=== PATIENT | male | born 1965 | race Caucasian/White ===

== ENCOUNTER 2018-12-19 15:00 | Outpatient (RCR) | payer BC, SELFPAY ==
--- NOTE | 2018-12-11 14:50 | HP.PTEVAL_ITS ---
Patient's Visit Information CLAUDE FORBES is a 53 year old M referred to Physical Therapy by YOVANY Diego with a diagnosis of L shoulder impingement. Date of Evaluation: 12/11/18 Physical Therapist: Ricardo Talley PT, ATC - Visit Plan Frequency: 2x /Week Duration: 2 Weeks Plan: Instruct Pt on HEP of rotator cuff and scap stab ex's - Subjective Findings: Pt reports he has had L shoulder pain for 1-2 months. Pt reports he is R hand dominant. Pt reports his pain had an insidious onset in nature. Pt reports he has sleep difficulty at night secondary to pain. Pt notes no tingling or numbness at this time. Pt had a cortizine injection today in his L shoulder. Pt reports no relief of pain yet at this time. 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 Pt reports he has weakness in his L arm and it is mosty just a dull ache most of the time. Pt reports he has had xrays taken which revealed no significnat findings. 4/10 pain at rest, 8/10 at worst. - Pain L shoulder Pain Intensity (Out of 10): 4 Pain Intensity Range: 8 - Objective Neuro: B UE sensation is WNL. B bicepital reflex= 1/3. Palpation: Minor pain on anterior L shoulder. No pbvious deformity at this time. ROM: R shoulder flex= 150, abd= 140, ER= 50, IR WNL;L shoulder flex= 150, abd= 140, ER= 50, IR WNL. MMT: L shoulder ER and flex= 4-/5 and are painful. All other B UE measurements 5/5 throughout. Special tests: No pos tests this date - Goals Goal 1:: I with HEP Goal Time Frame: 2 Weeks - Rehabilitation Potential Physical Therapy Diagnosis: L shoulder pain and weakness secondary to L shoulder impingement Rehabilitation Potential: Good - Anticipated Interventions Thank you for the opportunity to evaluate your patient. For Medicare and Medicare HMO plans, please review the plan of care and approve it. It will need to be FAXED BACK to us at [phone] for Medicare purposes. For Medicare only, by signing this I certify the plan of care. Please let me know if there are questions or concerns regarding this plan of care. Physician Signature: Date:
--- NOTE | 2018-12-19 15:38 | HP.PTDCSUM ---
HP - PT D/C Summary It has been my pleasure to treat CLAUDE FORBES under orders from YOVANY Diego, for the diagnosis of L shoulder impingement for a total of 4 visit(s). Discharge Date: Please see the following information for a summary of their discharge status. - Subjective Subjective: No pain this date - Pain L shoulder Pain Intensity (Out of 10): 0 - Overall Improvement % Improvement: 95 - Objective Objective/Function: L shoulder ROM: flex and abd= 170 degrees. MMT: 5/5 throughout. Pain is 0/10. Pt is I with HEP. Rx goals achieved - Goals Goal 1:: I with HEP - Plan Plan: Discharge - D/C Information If there are questions or concerns regarding this patient's physical therapy, please feel free to call me at [phone]. Thank you for the referral of this patient. Sincerely, Ricardo Talley, PT, ATC
== END 2018-12-19 19:00 | disposition home or self-care (01) ==
LOC: PT 15:00
PROVIDERS: Family Provider Family Medicine; PCP Family Medicine; Referring Provider Physician Assistant Surgical; Visit Provider Physician Assistant Surgical
DX: M75.42 Impingement syndrome of left shoulder (principal); M25.512 Pain in left shoulder
CPT/HCPCS: 97110; 97161; 97530

== ENCOUNTER 2019-01-16 19:11 | Inpatient (IN) | payer BC, SELFPAY ==
[2019-01-16] VITALS (9 sets, daily range): BP systolic 121–174; BP diastolic 65–95; PULSE 67–101; RESP 16–20; TEMP 36.7–38.1; O2SAT 94–99; BMI 44.5; BMI 44.0
--- NOTE | 2019-01-16 19:37 | ED.VISSUMM ---
- ER Visit Summary Date of Service: 01/16/19 Chief Complaint: Cough History of Present Illness: The patient is a 53 M presenting with cough and fever. Patient states he had a cough and fever for the past 3 days. Temperature up to 103.6. Patient went to urgent care. They gave him a breathing treatment, ibuprofen. He states they did a chest x-ray which was unremarkable per patient. They sent him to the ED to rule out PE. Patient had a recent 9-hour car trip. He states he did get out frequently. His mom has a history of DVT. No other PE/DVT risk factors. He denies chest pain. Denies other complaints. Physical Examination: Vitals are stable. Temperature 100.6. Alert no acute distress. HEENT exam is unremarkable. Neck is supple. Lungs are clear and equal bilaterally. Heart is regular and tachycardic Abdomen is soft nontender nondistended. Extremities are unremarkable. Skin is warm and diaphoretic No focal neurologic deficit. Remainder of exam is unremarkable. Emergency Department Course and Treatment: Patient was given IV fluids, Tylenol. CBC shows white count 11.5. Chemistries unremarkable. Troponin is negative. D-dimer 0.65. Lactic acid normal. Due to elevated d-dimer CTA chest was obtained and shows no evidence of pulmonary embolism. Large right lower lobe consolidation. Additional scattered bilateral groundglass opacities/nodules. Likely infectious/inflammatory process, although follow-up is recommended to exclude underlying lesion. Mild right axillary lymph node prominence. Blood cultures were sent. Patient was given Levaquin IV. Discussed with the hospitalist for admission. Disposition: Admission Impression: Community acquired pneumonia This note was generated with [employer] dictation software. It may contain incorrect words, spelling, and punctuation that were not noted in review of the chart prior to signing ED Disposition - Plan for ED Patient: Referrals: Flor Ribeiro MD [STAFF PHYSICIAN] -
[2019-01-16] MEDS: Acetaminophen 500 MG Tablet 1000 MG PO (20:11)
[2019-01-16 20:16] LABS: D-Dimer Quantitative (DVT/PE) 0.65 FEU/ug/m (0.27-0.49)
[2019-01-16] MEDS: 0.9% Normal Saline 1,000 ML 999 ML IV (20:17)
--- NOTE | 2019-01-16 20:20 | ED.RN ---
DR LOPEZ NOTIFIED OF DDIMER RESULTS
--- NOTE | 2019-01-16 20:22 | CT_ITS ---
STUDY: CTA CHEST REASON FOR EXAM: Male, 53 years old. Elevated d-dimer RADIATION DOSAGE (If Supplied By Facility): CTDIvol = ( 15.04 ) mGy, DLP = ( 517.59 ) mGycm TECHNIQUE: The examination was performed with the intravenous administration of 100ML IV Isovue 370. Post-processing of the angiographic images was performed, with multiplanar reformation and 3D reconstruction. Individualized dose optimization techniques were used for this CT. COMPARISON: None. FINDINGS: Normal enhancement of the main pulmonary artery and right and left pulmonary arteries. Normal enhancement of the bilateral peripheral pulmonary arteries. There is no demonstrated pulmonary embolism. Normal thoracic aorta and visualized great vessels. There is no demonstrated aortic dissection. Normal heart and pericardium. Normal mediastinum. Normal hilar regions. Mild right axillary lymph node prominence is present. Normal visualized trachea and bronchi. The lungs are well expanded. There is a large right lower lobe consolidation. There are additional scattered bilateral groundglass opacities/nodules. Normal pleura. Normal chest wall structures. Normal osseous structures. Normal visualized upper abdomen. CT/CTA Chest W/WO Contrast IMPRESSION: No evidence of pulmonary embolism. Large right lower lobe consolidation. Additional scattered bilateral groundglass opacities/nodules. Likely infectious/inflammatory process, although follow-up is recommended to exclude underlying lesion. Mild right axillary lymph node prominence. Electronically Signed: Javier Ansari, at 21:40 EDT Tel , Service support ,
[2019-01-16 20:54] LABS: Anion Gap 5 (5-15); BUN 18 mg/dL (7-18); BUN/Creat Ratio 17.1 RATIO (10-20); Calcium,Total 8.7 mg/dL (8.5-10.1); Chloride 105 mmol/L (98-107); Creatinine, Serum 1.05 mg/dL (0.70-1.30); EST Glomerular Filtration Rate 79 mL/min (>60); Est Glom Filt Rate - Afr Amer 95 mL/min (>60); Estimated Creatinine Clearance 85.94 ml/min; Glucose 103 mg/dL (74-106); Potassium 3.9 mmol/L (3.5-5.1); Sodium Level 137 mmol/L (136-145)
[2019-01-16 22:08] LABS: Absolute Lymphocyte Count 1.39 X10^3/uL (0.83-4.51); Absolute Neutrophil Count 8.7 X10^3/uL (2.0-7.7); Basophil# 0.03 X10^3/uL; Basophil% 0.3 % (0-1); Eosinophils% 0.9 % (0-5); Hematocrit 40.3 % (40-54); Hemoglobin 13.6 g/dL (13.0-16.5); Lymphocyte # 1.39 X10^3/ul (4.0); Lymphocyte % 12.1 % (19-41); Mean Corp Hgb Conc 33.7 g/dL (32-36); Mean Corpuscular Hgb 30.6 pg (27.0-32.0); Mean Corpuscular Volume 90.6 fL (80-94); Monocyte# 1.16 X10^3/uL; Monocyte% 10.1 % (0-10); NRBC Flagged by Analyzer 0 % (0-5); Neutrophil # 8.66 X10^3/uL (2.7-7.7); Neutrophil % 75.6 % (47-70); Platelet Count 245 K/mm3 (150-450); RBC Distribution Width CV 12.5 % (11.6-14.6); RBC Distribution Width SD 41.4 fl (35.1-43.9); Red Blood Count 4.45 M/mm3 (4.6-6.2); White Blood Count 11.5 K/mm3 (4.4-11.0)
[2019-01-16 22:40] LABS: Lactic Acid 0.9 mmol/L (0.4-2.0)
--- NOTE | 2019-01-16 22:59 | HP.PCM_ITS ---
History of Present Illness Date of Admission: 01/16/19 Chief Complaint: cough The patient is a 53 year old M with no significant past medical history. Was admitted through the ED on 02/02/2019 with complaint of a cough. Cough had been going on for a few days. Denies any associated fever chills, chest pain or palpitations or dizziness. Cough was nonproductive. Patient is going to the urgent care today where his temperature was checked and was around 103 Fahrenheit. They did a chest x-ray according to patient which was unremarkable and he was sent to the ED to rule out a PE. D-dimer was 0.65. Chest CT done in the ED showed no evidence of PE but showed a right large lower lobe consolidation with additional scattered bilateral groundglass opacities. Patient was therefore admitted to be managed for bilateral pneumonia. He Was started on IV Levaquin. [] Past Medical History Allergies Sulfa (Sulfonamide Antibiotics) Allergy (Verified 01/16/19 19:12) Rash Surgical History: no surgical history Psychiatric History: No pertinent psych hx Lives: Spouse/ Significant Other Smoking Status: Never smoker Alcohol: None Drugs: None - *Family History Maternal History Items: COPD, Diabetes Paternal History Items: COPD, Diabetes Review of Systems Constitutional: Reports: Fever. Denies: Chills, Malaise, Weakness, Weight Change Eyes: Denies: Blurred vision HEENT: Denies: Head Aches, Sinus Congestion, Sinus Drainage Cardiovascular: Denies: Chest Pain, Palpitations Respiratory: Reports: Cough. Denies: Pleuritic Pain, Shortness of Breath, Shortness of breath at rest, Shortness of breath upon exertion, Sputum production, Wheezing Gastrointestinal: Denies: Abdominal Pain, Nausea, Vomiting Genitourinary: Denies: Dysuria Musculoskeletal: Denies: Joint Pain, Joint Tenderness Skin: Denies: Rash, Wounds Neurological: Denies: Numbness, Tingling, Focal weakness Psychiatric: Denies: Anxiety, Depression, Homicidal Ideations, Suicidal Ideations Hematologic/ Lymphatic: Denies: Easy Bruising, Easy Bleeding VTE Information - Inpt Only VTE Present on Admission: No VTE Pharm Prophylaxis ordered?: Yes - Physical Exam General: Alert, Oriented x3, Cooperative, No apparent distress HEENT: Atraumatic, PERRLA, EOMI, Normocephalic Oral: Moist Mucosa Neck: Supple, No JVD, Negative Carotid Bruits Lungs: Clear to auscultation, Normal air movement, No rhonchi, No wheeze, No rales, Diminished Cardiovascular: Regular rate, Regular Rhythm, Normal S1, Normal S2, No murmurs Abdomen: Bowel Sounds Present, Soft, Non Tender, Non-Distended, No Hepato- splenomegaly Extremities: No clubbing, No cyanosis, No edema, Capillary Refill Less than 3 Seconds Skin: No rashes, No breakdown Musculoskeletal: No Tenderness to Palpation of Joints or Extremities Lymphatic: No Cervical, Supraclavicular, or Inguinal Adenopathy Neurological: Cranial nerves II-XII grossly intact, Neuro grossly intact, Motor Exam 5/5 strength throughout Psych/Mental Status: Normal Affect, Appropriate, Alert and oriented to time, place, person, mood and affect Vital Signs Temp Pulse Resp BP Pulse Ox 98.1 F 68 16 164/82 H 95 01/16/19 22:00 01/16/19 22:00 01/16/19 22:00 01/16/19 22:00 01/16/19 22:00 Oxygen Delivery Method Room Air Weight: 310 lb 3.046 oz Body Mass Index (BMI) 44.5 Laboratory Tests Past 24 Hrs 01/16/19 01/16/19 01/16/19 19:55 19:55 19:55 WBC 11.5 H RBC 4.45 L Hgb 13.6 Hct 40.3 MCV 90.6 MCH 30.6 MCHC 33.7 RDW Std Deviation 41.4 RDW Coeff of Jorge 12.5 Plt Count 245 MPV 10.0 Immature Gran % (Auto) 1.000 H Neut % (Auto) 75.6 H Lymph % (Auto) 12.1 L [place] % (Auto) 10.1 H Eos % (Auto) 0.9 Baso % (Auto) 0.3 Absolute Neuts (auto) 8.7 H Absolute Lymphs (auto) 1.39 Nucleated RBC % 0 D-Dimer Quant (PE/DVT) 0.65 H* Sodium 137 Potassium 3.9 Chloride 105 Carbon Dioxide 27.0 Anion Gap 5 BUN 18 Creatinine 1.05 Estim Creat Clear Calc 85.94 Est GFR (MDRD) Af Amer 95 Est GFR (MDRD) Non-Af 79 BUN/Creatinine Ratio 17.1 Glucose 103 Lactic Acid Calcium 8.7 Troponin I 01/16/19 01/16/19 19:55 22:00 WBC RBC Hgb Hct MCV MCH MCHC RDW Std Deviation RDW Coeff of Jorge Plt Count MPV Immature Gran % (Auto) Neut % (Auto) Lymph % (Auto) [place] % (Auto) Eos % (Auto) Baso % (Auto) Absolute Neuts (auto) Absolute Lymphs (auto) Nucleated RBC % D-Dimer Quant (PE/DVT) Sodium Potassium Chloride Carbon Dioxide Anion Gap BUN Creatinine Estim Creat Clear Calc Est GFR (MDRD) Af Amer Est GFR (MDRD) Non-Af BUN/Creatinine Ratio Glucose Lactic Acid 0.9 Calcium Troponin I < 0.015 Diagnostic Data Chest CTA 01/16/19 20:22 IMPRESSION: No evidence of pulmonary embolism. Large right lower lobe consolidation. Additional scattered bilateral groundglass opacities/nodules. Likely infectious/inflammatory process, although follow-up is recommended to exclude underlying lesion. Mild right axillary lymph node prominence. Electronically Signed: Javier Ansari, at 21:40 EDT Tel , Service support , Assessment/Plan 53-year-old male admitted with complaint of a cough 1. Community acquired pneumonia * admit to [facility] surg * CTA was negative for PE. but showed large right lower lobe consolidation nad additional bilateral ground glass opacities/nodules * BBC mildly elevated at 11.5. * Check urine for strep and Legionella antigens. * Check blood cultures * Added on IV Levaquin. Will continue. * 2. SUper morbid Obesity. BMI is more than 40. Complicates acute care, expected recovery and prognosis. Code Visit OBSV E&M: [id number] Initial observation care L3
[2019-01-16] MEDS: levoFLOXacin IV 750 MG/150 ML BAG 100 MG IV (23:09)
[2019-01-17] VITALS (13 sets, daily range): BP systolic 125–154; BP diastolic 63–86; PULSE 58–100; RESP 16–18; TEMP 36.6–37.5; O2SAT 94–98
[2019-01-17 05:57] LABS: Absolute Lymphocyte Count 1.25 X10^3/uL (0.83-4.51); Absolute Neutrophil Count 5.7 X10^3/uL (2.0-7.7); Basophil# 0.03 X10^3/uL; Basophil% 0.4 % (0-1); Eosinophil# 0.17 X10^3/uL; Hematocrit 38.2 % (40-54); Hemoglobin 12.7 g/dL (13.0-16.5); Lymphocyte # 1.25 X10^3/ul (4.0); Mean Corp Hgb Conc 33.2 g/dL (32-36); Mean Corpuscular Hgb 29.8 pg (27.0-32.0); Mean Corpuscular Volume 89.7 fL (80-94); Mean Platelet Vol. 8.8 fl (6.2-12.0); Monocyte# 1.05 X10^3/uL; Monocyte% 12.6 % (0-10); NRBC Flagged by Analyzer 0 % (0-5); Neutrophil # 5.69 X10^3/uL (2.7-7.7); Neutrophil % 68.1 % (47-70); Platelet Count 185 K/mm3 (150-450); RBC Distribution Width CV 12.7 % (11.6-14.6); RBC Distribution Width SD 41.5 fl (35.1-43.9); Red Blood Count 4.26 M/mm3 (4.6-6.2); White Blood Count 8.4 K/mm3 (4.4-11.0)
[2019-01-17 06:11] LABS: Anion Gap 8 (5-15); BUN 15 mg/dL (7-18); BUN/Creat Ratio 19.7 RATIO (10-20); Calcium,Total 8.2 mg/dL (8.5-10.1); Chloride 108 mmol/L (98-107); Creatinine, Serum 0.76 mg/dL (0.70-1.30); EST Glomerular Filtration Rate 114 mL/min (>60); Est Glom Filt Rate - Afr Amer 138 mL/min (>60); Estimated Creatinine Clearance 118.73 ml/min; Glucose 97 mg/dL (74-106); Potassium 3.7 mmol/L (3.5-5.1); Sodium Level 141 mmol/L (136-145)
--- NOTE | 2019-01-17 10:30 | PCM.DC ---
You will use the following diet at home:: No restrictions Your food should be the consistency of: Regular Your liquids should be the consistency of: Regular/Thin Discharge Activity: - - Return to work Tuesday01/22/2019 Allergies/Adverse Reactions: Allergies Sulfa (Sulfonamide Antibiotics) Allergy (Verified 01/16/19 19:12) Rash Medications to take at Discharge Guaifenesin Dm [Robitussin Dm] 10 ml PO Q6H PRN PRN #1 udc 01/17/19 levoFLOXacin tablet [Levaquin tablet] 750 mg PO DAILY #6 tab 01/17/19 The following prescriptions were given: levoFLOXacin tablet [Levaquin tablet] 750 mg PO DAILY #6 tab Transmission Status: Pending to [facility] Guaifenesin Dm [Robitussin Dm] 10 ml PO Q6H PRN PRN #1 udc PRN Reason: Cough Primary Care Physician: Flor Ribeiro MD [STAFF PHYSICIAN] - Please follow up with your Primary Care Physician in: 1-2 weeks Test Results: Test results from this visit will be discussed in further detail at your follow-up appointment, if applicable. Proposed Discharge Date: 01/17/19
--- NOTE | 2019-01-17 11:16 | ECHOCS_ITS ---
Reason For Study: Arrhythmia Procedure This was a 2D Doppler, Color Flow transthoracic echocardiogram. The study was technically difficult. Exam performed portable in patient room. Left Ventricle Normal size and thickness. The estimated ejection fraction is 65 %. Normal diastology for age. No regional wall motion abnormalities noted. Right Ventricle Normal size and thickness. Normal systolic function. Atria Normal left atrium. Normal right atrium. Normal atrial septum. Mitral Valve The mitral valve is structurally normal. No prolapse or stenosis seen. Tricuspid Valve Normal tricuspid valve. Unable to estimate RV systolic pressure due to insufficient tricuspid regurgitant envelope. Aortic Valve Normal aortic valve. Trisinus/trileaflet aortic valve. Pulmonic Valve Normal pulmonic valve. Great Vessels Normal aortic root. Normal arch. Normal inferior vena cava. Inferior vena cava collapse with sniff. Pericardium/Pleural No pericardial effusion. Medication Diluted definity 2ml given slow IV push to enhance endocardial definition. MMode/2D Measurements & Calculations LVIDd: 4.7 cm IVSd: 1.1 cm Ao root diam: 3.4 cm LVIDs: 3.4 cm LVPWd: 1.6 cm FS: 27.2 % LAV(MOD-bp): 56.1 ml LA A4 area: 17.3 cm2 LA dimension(2D): 3.3 cm LAV(MOD-bp) Indexed: 22.4 ml/m2 LAV(MOD-sp2): 67.4 ml LAV(MOD-sp4): 42.1 ml RA A4 area: 13.9 cm2 Doppler Measurements & Calculations MV E max corey: 113.1 cm/sec Lat Peak E' Corey: 14.5 cm/sec Med Peak E' Corey: 11.6 cm/sec MV A max corey: 97.9 cm/sec E/E' lat: 7.8 E/E' med: 9.8 MV E/A: 1.2 Ao V2 max: 177.3 cm/sec LV V1 max: 131.2 cm/sec PA V2 max: 136.6 cm/sec Ao max P.6 mmHg LV V1 max P.9 mmHg Interpretation Summary The estimated ejection fraction is 65 %. Normal diastology for age. Unable to estimate RV systolic pressure due to insufficient tricuspid regurgitant envelope. The study was technically difficult. Contrast injection was performed. There is no comparison study available. Ordering Physician: Bartolome Molina Referring Physician: Liv Mariscal Performed By: Jeannette Mclaughlin RDCS
--- NOTE | 2019-01-17 11:17 | EKG12_ITS ---
Test Reason : AH Blood Pressure : / mmHG Vent. Rate : 080 BPM Atrial Rate : 080 BPM P-R Int : 144 ms QRS Dur : 112 ms QT Int : 394 ms P-R-T Axes : 047 008 022 degrees QTc Int : 454 ms Normal sinus rhythm Normal ECG When compared with ECG of 29-FEB-2012 16:43, No significant change was found Confirmed by ALEJANDRA VIDAL ([id number]), manager editorial MARSHALL MARSHALL ([id number]) on 01/18/2019 2:58:32 PM Referred By: Liv Mariscal Confirmed By:ALEJANDRA VIDAL
--- NOTE | 2019-01-17 11:22 | PHA.DC.MC ---
Pharmacy Service has performed discharge medication reconciliation and counseling for this patient. The patient's discharge medication list was reviewed for discrepancies and discrepancies were resolved. The patient was counseled on the following discharge medications and changes in medications for homegoing were reviewed. 1. LEVOFLOXACIN 750MT PO DAILY X6 DAYS The Reason for Use, instructions for use, and potential side effects were reviewed for all new medications. The patient's questions regarding all of their medications were answered. The patient was able to verbally demonstrate an understanding of their discharge medications. Home Medications Guaifenesin Dm [Robitussin Dm] 10 ml PO Q6H PRN PRN #1 udc 01/17/19 levoFLOXacin tablet [Levaquin tablet] 750 mg PO DAILY #6 tab 01/17/19
[2019-01-17 11:43] LABS: Magnesium 2.5 mg/dL (1.6-2.6); Thyroid Stim Hormone (TSH) 2.59 uIU/mL (0.358-3.74)
--- NOTE | 2019-01-17 12:14 | PCM.PROGNOTE ---
<Bartolome Molina - Last Filed: 01/17/19 12:14> Subjective: Fevers resolved. No chills overnight. Nonproductive cough. No CP. No SOB. Pt ambulated in the hallway with no issues. Prior to DC patient developed 12 beats of nonsustained asymptomatic vtach while lying in bed. He has no hx of heart disease, denies family hx heart disease. - Physical Exam General: Alert, Oriented x3, Cooperative HEENT: Atraumatic, PERRLA, EOMI, Normocephalic Neck: Supple, No JVD, Negative Carotid Bruits Lungs: Normal air movement, No rales Cardiovascular: Regular rate, No murmurs Abdomen: Bowel Sounds Present, Soft, Non Tender, Obese Extremities: No edema, Capillary Refill Less than 3 Seconds Skin: No rashes, No breakdown Musculoskeletal: No Tenderness to Palpation of Joints or Extremities Neurological: Cranial nerves II-XII grossly intact Psych/Mental Status: Normal Affect, Appropriate Vital Signs Temp Pulse Resp BP Pulse Ox 97.8 F 88 18 125/74 H 98 01/17/19 11:24 01/17/19 11:24 01/17/19 11:24 01/17/19 11:24 01/17/19 11:24 Oxygen Delivery Method Room Air Weight: 306 lb 14.135 oz Body Mass Index (BMI) 44.0 Intake and Output for Last 24 Hours 01/15/19 01/16/19 01/17/19 23:59 23:59 23:59 Intake Total 1099 / 1099 682.1 / 682.1 Balance 1099 / 1099 682.1 / 682.1 Microbiology Past 72 Hours 01/16/19 06:27 Legionella Antigen - Final Urine, Clean Catch Streptococcus pneumoniae Antigen (M - Final Laboratory Tests Past 24 Hrs 01/16/19 01/16/19 01/16/19 19:55 19:55 19:55 WBC 11.5 H RBC 4.45 L Hgb 13.6 Hct 40.3 MCV 90.6 MCH 30.6 MCHC 33.7 RDW Std Deviation 41.4 RDW Coeff of Jorge 12.5 Plt Count 245 MPV 10.0 Immature Gran % (Auto) 1.000 H Neut % (Auto) 75.6 H Lymph % (Auto) 12.1 L [place] % (Auto) 10.1 H Eos % (Auto) 0.9 Baso % (Auto) 0.3 Absolute Neuts (auto) 8.7 H Absolute Lymphs (auto) 1.39 Nucleated RBC % 0 D-Dimer Quant (PE/DVT) 0.65 H* Sodium 137 Potassium 3.9 Chloride 105 Carbon Dioxide 27.0 Anion Gap 5 BUN 18 Creatinine 1.05 Estim Creat Clear Calc 85.94 Est GFR (MDRD) Af Amer 95 Est GFR (MDRD) Non-Af 79 BUN/Creatinine Ratio 17.1 Glucose 103 Lactic Acid Calcium 8.7 Magnesium Troponin I [facility] 01/16/19 01/16/19 01/17/19 19:55 22:00 05:35 WBC 8.4 RBC 4.26 L Hgb 12.7 L Hct 38.2 L MCV 89.7 MCH 29.8 MCHC 33.2 RDW Std Deviation 41.5 RDW Coeff of Jorge 12.7 Plt Count 185 MPV 8.8 Immature Gran % (Auto) 1.900 H Neut % (Auto) 68.1 Lymph % (Auto) 15.0 L [place] % (Auto) 12.6 H Eos % (Auto) 2.0 Baso % (Auto) 0.4 Absolute Neuts (auto) 5.7 Absolute Lymphs (auto) 1.25 Nucleated RBC % 0 D-Dimer Quant (PE/DVT) Sodium Potassium Chloride Carbon Dioxide Anion Gap BUN Creatinine Estim Creat Clear Calc Est GFR (MDRD) Af Amer Est GFR (MDRD) Non-Af BUN/Creatinine Ratio Glucose Lactic Acid 0.9 Calcium Magnesium Troponin I < 0.015 TSH 01/17/19 01/17/19 05:35 05:35 WBC RBC Hgb Hct MCV MCH MCHC RDW Std Deviation RDW Coeff of Jorge Plt Count MPV Immature Gran % (Auto) Neut % (Auto) Lymph % (Auto) [place] % (Auto) Eos % (Auto) Baso % (Auto) Absolute Neuts (auto) Absolute Lymphs (auto) Nucleated RBC % D-Dimer Quant (PE/DVT) Sodium 141 Potassium 3.7 Chloride 108 H Carbon Dioxide 25.0 Anion Gap 8 BUN 15 Creatinine 0.76 Estim Creat Clear Calc 118.73 Est GFR (MDRD) Af Amer 138 Est GFR (MDRD) Non-Af 114 BUN/Creatinine Ratio 19.7 Glucose 97 Lactic Acid Calcium 8.2 L Magnesium 2.5 Troponin I TSH 2.59 Medical Necessity - Tobacco Use Smoking Status: Never smoker Assessment/Plan 1. RLL pna - CAP, suspect streptococcal - continue levaquin. No further fevers, leukocytosis resolved. Pna seen on CTA. No PE. LA negative. Urine antigens negative. Add PEP therapy. 2. Nonsustained Vtach - 12 beast. Asymptomatic. Check echo. Check EKG. QT on tele 370. Trop neg. TSH/Mag neg. No hx cardiac dz or arrythmias. 3. Obesity - dietary consult. DVT ppx: lovenox DC planning: pending workup of #2. This patient was seen by Bartolome Molina PA-C under the supervision of Dr. Givens. <Robinson Givens - Last Filed: 01/17/19 14:45> - Physical Exam Vital Signs Temp Pulse Resp BP Pulse Ox 97.8 F 81 18 125/74 H 98 01/17/19 11:24 01/17/19 12:02 01/17/19 11:24 01/17/19 11:24 01/17/19 11:24 Oxygen Delivery Method Room Air Weight: 139.2 kg Body Mass Index (BMI) 44.0 Intake and Output for Last 24 Hours 01/15/19 01/16/19 01/17/19 23:59 23:59 23:59 Intake Total 1099 / 1099 682.1 / 682.1 Balance 1099 / 1099 682.1 / 682.1 Microbiology Past 72 Hours 01/16/19 06:27 Legionella Antigen - Final Urine, Clean Catch Streptococcus pneumoniae Antigen (M - Final Laboratory Tests Past 24 Hrs 01/16/19 01/16/19 01/16/19 19:55 19:55 19:55 WBC 11.5 H RBC 4.45 L Hgb 13.6 Hct 40.3 MCV 90.6 MCH 30.6 MCHC 33.7 RDW Std Deviation 41.4 RDW Coeff of Jorge 12.5 Plt Count 245 MPV 10.0 Immature Gran % (Auto) 1.000 H Neut % (Auto) 75.6 H Lymph % (Auto) 12.1 L [place] % (Auto) 10.1 H Eos % (Auto) 0.9 Baso % (Auto) 0.3 Absolute Neuts (auto) 8.7 H Absolute Lymphs (auto) 1.39 Nucleated RBC % 0 D-Dimer Quant (PE/DVT) 0.65 H* Sodium 137 Potassium 3.9 Chloride 105 Carbon Dioxide 27.0 Anion Gap 5 BUN 18 Creatinine 1.05 Estim Creat Clear Calc 85.94 Est GFR (MDRD) Af Amer 95 Est GFR (MDRD) Non-Af 79 BUN/Creatinine Ratio 17.1 Glucose 103 Lactic Acid Calcium 8.7 Magnesium Troponin I TSH 01/16/19 01/16/19 01/17/19 19:55 22:00 05:35 WBC 8.4 RBC 4.26 L Hgb 12.7 L Hct 38.2 L MCV 89.7 MCH 29.8 MCHC 33.2 RDW Std Deviation 41.5 RDW Coeff of Jorge 12.7 Plt Count 185 MPV 8.8 Immature Gran % (Auto) 1.900 H Neut % (Auto) 68.1 Lymph % (Auto) 15.0 L [place] % (Auto) 12.6 H Eos % (Auto) 2.0 Baso % (Auto) 0.4 Absolute Neuts (auto) 5.7 Absolute Lymphs (auto) 1.25 Nucleated RBC % 0 D-Dimer Quant (PE/DVT) Sodium Potassium Chloride Carbon Dioxide Anion Gap BUN Creatinine Estim Creat Clear Calc Est GFR (MDRD) Af Amer Est GFR (MDRD) Non-Af BUN/Creatinine Ratio Glucose Lactic Acid 0.9 Calcium Magnesium Troponin I < 0.015 TSH 01/17/19 01/17/19 05:35 05:35 WBC RBC Hgb Hct MCV MCH MCHC RDW Std Deviation RDW Coeff of Jorge Plt Count MPV Immature Gran % (Auto) Neut % (Auto) Lymph % (Auto) [place] % (Auto) Eos % (Auto) Baso % (Auto) Absolute Neuts (auto) Absolute Lymphs (auto) Nucleated RBC % D-Dimer Quant (PE/DVT) Sodium 141 Potassium 3.7 Chloride 108 H Carbon Dioxide 25.0 Anion Gap 8 BUN 15 Creatinine 0.76 Estim Creat Clear Calc 118.73 Est GFR (MDRD) Af Amer 138 Est GFR (MDRD) Non-Af 114 BUN/Creatinine Ratio 19.7 Glucose 97 Lactic Acid Calcium 8.2 L Magnesium 2.5 Troponin I TSH 2.59 Assessment/Plan This patient was seen in conjunction with Bartolome Jesse PA-C . I have independently interviewed and examined the patient and reviewed pertinent historical, laboratory, and other data. Please refer to Bartolome Molina PA-C note for details of this patient's presentation, findings, and recommendations. I have reviewed Bartolome Molina PA-C note and concur with documented findings. In brief, patient is a 22-year-old gentleman in relatively good health who presented with 1 week history of fever generalized weakness as well as cough. Imaging studies obtained on admission demonstrated Large right lower lobe consolidation assessment of community-acquired pneumonia made admitted to regular nursing floor for further management. Patient was found to have runs of nonsustained VT decision to discharge patient home placed on hold Physical Examination: GENERAL: cooperative HEENT: Atraumatic; EYES; Anicteric, NECK; supple, normal thyroid, RESPIRATORY: Diminished to auscultation CARDIOVASCULAR: Regular S1 S2, GI: soft, non-tender, normoactive bowel sounds, : No Renal angle tenderness; NEURO: Awake; no lateralizing signs. SKIN: No Rash PSYCH; Normal affect Assessment: 1. Large right lower lobe pneumonia with suspected streptococcal pneumonia 2. Obesity with BMI of 44.0 3. Nonsustained VT 4. DVT prophylaxis Recommendations: 1. I have discussed the results of my overview and impressions with the patient 2. Options for management were reviewed Clinical Impression(s) from Imaging Studies Chest CTA 01/16/19 20:22 IMPRESSION: No evidence of pulmonary embolism. Large right lower lobe consolidation. Additional scattered bilateral groundglass opacities/nodules. Likely infectious/inflammatory process, although follow-up is recommended to exclude underlying lesion. Mild right axillary lymph node prominence. Electronically Signed: Javier Ansari, at 21:40 EDT Tel , Service support , Code Visit Inpatient E&M: 85712 Subs Hosp L2
--- NOTE | 2019-01-17 14:23 | CASEMGMT ---
EYAD LEON assessment: Face to Face with patient for initial transition planning/care coordination assessment. EYAD LEON introduced self and role at [facility], pt voices understanding and consents to assessment at this time. Pt is standing in room in no distress at this time. Pt is A/Ox4 at this time and answers all questions appropriately at this time. . Care providers, pharmacy, and demographics verified at this time. PCP: [facility] Specialists: Pt states currently has no specialists at this time. Preferred Pharmacy: [facility] retail pharm/[facility] Insurance: [place] Prescription Benefit: [place] Living Will/HPOA: Pt states does not currently have LW/HPOA but is interested in AD info at this time. Yolanda SW aware, voices understanding. LNOK: Rika Guajardo, Living Arrangements: Pt states lives with in 1 story home and states no concerns at home at this time. Pt is independent with ADL's. Transportation: Pt states drives self and states no transportation concerns at this time. DME/HHC: Pt states no current DME or need for any further DME at this time. Pt states no hx of HHC or SNF in the past. Pt states no concerns with going home at time of discharge. 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 Pt states does not smoke and rarely drinks ETOH. Pt states no further concerns/needs at this time. CM to follow for any further discharge planning/needs. Advised pt to ask for CM if any further questions/concerns/needs arise, voices understanding. Pt Goal: Home Plan[place] EYAD LEON
[2019-01-17] MEDS: Enoxaparin 40 MG/0.4 ML Syringe SC (15:47)
[2019-01-17] MEDS: Acetaminophen 325 MG Tablet 650 MG PO (16:17)
[2019-01-17] MEDS: guaiFENesin Dm 10 ML UDC PO (16:18)
[2019-01-17] MEDS: levoFLOXacin IV 750 MG/150 ML BAG 100 MG IV (23:00)
[2019-01-17] MEDS: 0.9% NaCl Peripheral Flush Adult/Peds IV (23:00)
[2019-01-18 03:00] VITALS: PULSE 63
[2019-01-18 04:50] VITALS: BP 158/94; PULSE 74; RESP 16; TEMP 36.8; O2SAT 96
--- NOTE | 2019-01-18 07:25 | PN_ITS ---
Patient Problems: Active and Suspected Problems Pneumonia (Acute) Subjective: In brief, patient is a 53-year-old gentleman in relatively good health who presented with 1 week history of fever generalized weakness as well as cough. Imaging studies obtained on admission demonstrated Large right lower lobe consolidation assessment of community-acquired pneumonia made admitted to regular nursing floor for further management. Patient was found to have runs of nonsustained VT Objective: Physical Examination: GENERAL: cooperative HEENT: Atraumatic; EYES; Anicteric, NECK; supple, normal thyroid, RESPIRATORY: Diminished to auscultation CARDIOVASCULAR: Regular S1 S2, GI: soft, non-tender, normoactive bowel sounds, : No Renal angle tenderness; NEURO: Awake; no lateralizing signs. SKIN: No Rash PSYCH; Normal affect Vitals/I&O's: Vital Signs Temp Pulse Resp BP Pulse Ox 98.3 F 74 16 158/94 H 96 01/18/19 04:50 01/18/19 04:50 01/18/19 04:50 01/18/19 04:50 01/18/19 04:50 Oxygen Delivery Method Room Air Weight: 139.2 kg Body Mass Index (BMI) 44.0 Intake and Output for Last 24 Hours 01/16/19 01/17/19 01/18/19 23:59 23:59 23:59 Intake Total 1099 / 1099 1895.1 / 1895.1 200 / 200 Balance 1099 / 1099 1895.1 / 1895.1 200 / 200 Microbiology Past 72 Hours 01/16/19 06:27 Urine, Clean Catch Legionella Antigen - Final 01/16/19 06:27 Urine, Clean Catch Streptococcus pneumoniae Antigen (M - Final Laboratory Results 01/17/19 05:35: Magnesium 2.5, TSH 2.59 Current Medications Acetaminophen (Tylenol) 650 mg PO Q6H PRN PRN PRN Reason: FEVER Last Admin: 01/17/19 16:17 Dose: 650 mg Documented by: Dextrose (D50w Syringe) 0 gm IV X1 PRN; Protocol PRN Reason: Hypoglycemia Enoxaparin Sodium (Lovenox) 40 mg SC DAILY@1000 MARY Last Admin: 01/17/19 15:47 Dose: 40 mg Documented by: Glucagon () 1 mg IM .X1 PRN PRN Reason: Hypoglycemia Guaifenesin (Robitussin Dm) 10 ml PO Q6H PRN PRN PRN Reason: COUGH Last Admin: 01/17/19 16:18 Dose: 10 ml Documented by: Levofloxacin (Levaquin Iv) 750 mg in 150 mls @ 100 mls/hr IV Q24@2200 MARY Last Admin: 01/17/19 23:00 Dose: 100 mls/hr Documented by: Sodium Chloride () 250 mls @ 15 mls/hr IV .[id number] PRN PRN Reason: SALINE FLUSH Sodium Chloride () 10 - 40 ml IV UD PRN PRN Reason: SALINE FLUSH Last Admin: 01/17/19 23:00 Dose: 10 ml Documented by: Medical Necessity - Tobacco Use Smoking Status: Never smoker Assessment/Plan All Active Problems Pneumonia (Acute) T In brief, patient is a 53-year-old gentleman in relatively good health who presented with 1 week history of fever generalized weakness as well as cough. Imaging studies obtained on admission demonstrated Large right lower lobe consolidation assessment of community-acquired pneumonia made admitted to regular nursing floor for further management. Patient was found to have runs of nonsustained VT decision to discharge patient home placed on hold 1. Pneumonia: Suspected to be secondary to streptococci pneumonia. CTA obtained on admission demonstrated large right lower lobe consolidation and scattered bilateral ground opacities/nodules. Admitted to regular nursing floor after cultures have been sent which have remained negative to date. Patient was placed on Levaquin in addition to supplemental oxygen titrated to keep saturation greater than 90 2. Runs of nonsustained VT. Patient being monitored continuously on telemetry subsequent evaluation with a 2D echo did not reveal any structural abnormalities . Patient was found to have EF of 65% 3. Obesity with BMI of 44.0 weight loss advised 4. DVT prophylaxis SC Lovenox Clinical Impression(s) from Imaging Studies Chest CTA 01/16/19 20:22 IMPRESSION: No evidence of pulmonary embolism. Large right lower lobe consolidation. Additional scattered bilateral groundglass opacities/nodules. Likely infectious/inflammatory process, although follow-up is recommended to exclude underlying lesion. Mild right axillary lymph node prominence. Electronically Signed: Javier Ansari, at 21:40 EDT Tel , Service support , Code Visit Inpatient E&M: 11272 Subs Hosp L2
[2019-01-18 07:32] VITALS: O2SAT 94
[2019-01-18 07:51] LABS: Absolute Lymphocyte Count 1.01 X10^3/uL (0.83-4.51); Absolute Neutrophil Count 6.1 X10^3/uL (2.0-7.7); Basophil# 0.03 X10^3/uL; Basophil% 0.4 % (0-1); Eosinophil# 0.16 X10^3/uL; Eosinophils% 1.9 % (0-5); Hematocrit 39.8 % (40-54); Hemoglobin 13.4 g/dL (13.0-16.5); Lymphocyte # 1.01 X10^3/ul (4.0); Mean Corp Hgb Conc 33.7 g/dL (32-36); Mean Corpuscular Hgb 30.5 pg (27.0-32.0); Mean Corpuscular Volume 90.5 fL (80-94); Mean Platelet Vol. 8.9 fl (6.2-12.0); Monocyte# 0.93 X10^3/uL; Monocyte% 11.1 % (0-10); NRBC Flagged by Analyzer 0 % (0-5); Neutrophil # 6.13 X10^3/uL (2.7-7.7); Neutrophil % 73.1 % (47-70); Platelet Count 208 K/mm3 (150-450); RBC Distribution Width CV 12.5 % (11.6-14.6); RBC Distribution Width SD 41.1 fl (35.1-43.9); White Blood Count 8.4 K/mm3 (4.4-11.0)
[2019-01-18 08:10] VITALS: PULSE 86
[2019-01-18 08:11] LABS: Anion Gap 6 (5-15); BUN 14 mg/dL (7-18); BUN/Creat Ratio 15.1 RATIO (10-20); Calcium,Total 8.5 mg/dL (8.5-10.1); Chloride 104 mmol/L (98-107); Creatinine, Serum 0.92 mg/dL (0.70-1.30); EST Glomerular Filtration Rate 91 mL/min (>60); Est Glom Filt Rate - Afr Amer 110 mL/min (>60); Estimated Creatinine Clearance 98.08 ml/min; Glucose 153 mg/dL (74-106); Magnesium 2.2 mg/dL (1.6-2.6); Potassium 3.8 mmol/L (3.5-5.1); Sodium Level 137 mmol/L (136-145)
--- NOTE | 2019-01-18 08:18 | PCM.DC ---
You will use the following diet at home:: No restrictions Your food should be the consistency of: Regular Discharge Activity: Return to Normal Activity, - - Return to work Tuesday01/22/2019 Allergies/Adverse Reactions: Allergies Sulfa (Sulfonamide Antibiotics) Allergy (Verified 01/16/19 19:12) Rash Medications to take at Discharge Guaifenesin Dm [Robitussin Dm] 10 ml PO Q6H PRN PRN #1 udc 01/17/19 levoFLOXacin tablet [Levaquin tablet] 750 mg PO DAILY #6 tab 01/17/19 The following prescriptions were given: levoFLOXacin tablet [Levaquin tablet] 750 mg PO DAILY #6 tab Transmission Status: Received by ANISA HINSON-[facility] Guaifenesin Dm [Robitussin Dm] 10 ml PO Q6H PRN PRN #1 udc PRN Reason: Cough Primary Care Physician: Flor Ribeiro MD [STAFF PHYSICIAN] - Please follow up with your Primary Care Physician in: 1-2 weeks Test Results: Test results from this visit will be discussed in further detail at your follow-up appointment, if applicable. Proposed Discharge Date: 01/18/19
[2019-01-18 08:19] VITALS: BP 139/69; PULSE 79; RESP 18; TEMP 36.9; O2SAT 96
--- NOTE | 2019-01-18 08:20 | PCM.DC.SUM ---
Discharge Date and Diagnosis - Problem List Patient Problems: Active and Suspected Problems Pneumonia (Acute) Date of Admission: 01/16/19 Date of Discharge: 01/18/19 - Primary Discharge Diagnosis Active and Suspected Problems Pneumonia (Acute) - Secondary Discharge Diagnosis Chronic Problems BMI 40.0-44.9, adult (Chronic) Hospital Course and Treatment Summary of Care Provided: In brief, patient is a 53-year-old gentleman in relatively good health who presented with 1 week history of fever generalized weakness as well as cough. Imaging studies obtained on admission demonstrated Large right lower lobe consolidation assessment of community-acquired pneumonia made admitted to regular nursing floor for further management. Patient was found to have runs of nonsustained VT decision to discharge patient home placed on hold 1. Pneumonia: Suspected to be secondary to streptococci pneumonia. CTA obtained on admission demonstrated large right lower lobe consolidation and scattered bilateral ground opacities/nodules. Admitted to regular nursing floor after cultures have been sent which have remained negative to date. Patient was placed on Levaquin in addition to supplemental oxygen titrated to keep saturation greater than 90 2. Runs of nonsustained VT. Patient being monitored continuously on telemetry subsequent evaluation with a 2D echo did not reveal any structural abnormalities. Patient was found to have EF of 65% 3. Obesity with BMI of 44.0 weight loss advised 4. DVT prophylaxis SC Lovenox Patient Problems: Active and Suspected Problems Pneumonia (Acute) Objective: Physical Examination: GENERAL: cooperative HEENT: Atraumatic; EYES; Anicteric, NECK; supple, normal thyroid, RESPIRATORY: Diminished to auscultation CARDIOVASCULAR: Regular S1 S2, GI: soft, non-tender, normoactive bowel sounds, : No Renal angle tenderness; NEURO: Awake; no lateralizing signs. SKIN: No Rash - Physical Exam Vital Signs Temp Pulse Resp BP Pulse Ox 98.3 F 86 16 158/94 H 94 01/18/19 04:50 01/18/19 08:10 01/18/19 04:50 01/18/19 04:50 01/18/19 07:32 Oxygen Delivery Method Room Air Weight: 139.2 kg Body Mass Index (BMI) 44.0 Intake and Output for Last 24 Hours 01/16/19 01/17/19 01/18/19 23:59 23:59 23:59 Intake Total 1099 / 1099 1895.1 / 1895.1 200 / 200 Balance 1099 / 1099 1895.1 / 1895.1 200 / 200 Microbiology Past 72 Hours 01/16/19 06:27 Legionella Antigen - Final Urine, Clean Catch Streptococcus pneumoniae Antigen (M - Final Laboratory Tests Past 24 Hrs 01/17/19 01/18/19 01/18/19 05:35 07:35 07:35 WBC 8.4 RBC 4.40 L Hgb 13.4 Hct 39.8 L MCV 90.5 MCH 30.5 MCHC 33.7 RDW Std Deviation 41.1 RDW Coeff of Jorge 12.5 Plt Count 208 MPV 8.9 Immature Gran % (Auto) 1.500 H Neut % (Auto) 73.1 H Lymph % (Auto) 12.0 L [place] % (Auto) 11.1 H Eos % (Auto) 1.9 Baso % (Auto) 0.4 Absolute Neuts (auto) 6.1 Absolute Lymphs (auto) 1.01 Nucleated RBC % 0 Sodium 137 Potassium 3.8 Chloride 104 Carbon Dioxide 27.0 Anion Gap 6 BUN 14 Creatinine 0.92 Estim Creat Clear Calc 98.08 Est GFR (MDRD) Af Amer 110 Est GFR (MDRD) Non-Af 91 BUN/Creatinine Ratio 15.1 Glucose 153 H Calcium 8.5 Magnesium 2.5 2.2 TSH 2.59 Discharge Diet: No Restrictions Discharge Activity: Return to Normal Activity, - - Return to work Tuesday01/22/2019 Home Medications: Medications to take at Discharge Guaifenesin Dm [Robitussin Dm] 10 ml PO Q6H PRN PRN #1 udc 01/17/19 levoFLOXacin tablet [Levaquin tablet] 750 mg PO DAILY #6 tab 01/17/19 Following Prescrptions Were Given to Patient: levoFLOXacin tablet [Levaquin tablet] 750 mg PO DAILY #6 tab Transmission Status: Received by ANISA HINSON-[address] [facility] Guaifenesin Dm [Robitussin Dm] 10 ml PO Q6H PRN PRN #1 udc PRN Reason: Cough Primary Care Physician: Flor Ribeiro MD [STAFF PHYSICIAN] - Please follow up with your Primary Care Physician in: 1-2 weeks Disposition: Home Minutes spent on discharge:: 35 Patient Condition:: Stable Medical Necessity - Tobacco Use Smoking Status: Never smoker Meaningful Use Info Meaningful Use Diagnoses (Choose all that apply): None applicable Code Visit Inpatient E&M: [id number] Disch Hosp
--- NOTE | 2019-01-18 10:28 | CASEMGMT ---
Social work: SW referral for advance planning care. Met with patient to complete Advanced Directive documents. Patient choosing to complete both Living Will and DPOAHC. Documents discussed and patient verbalizes understanding of both documents. Questions answered and forms completed, notarized and copied. Patient provided original and copy went into chart. KRISTIAN Klein
== END 2019-01-18 11:17 | disposition home or self-care (01) | DRG 194 ==
LOC: ED 20:08 → PCU 01-17 06:59
PROVIDERS: Physician Assistant; Admitting Provider Student in an Organized Health Care Education/Training Program; Emergency Provider Emergency Medicine; Family Provider Family Medicine; PCP Family Medicine; Referring Provider Student in an Organized Health Care Education/Training Program; Visit Provider Internal Medicine
DX: J13 Pneumonia due to Streptococcus pneumoniae (principal); I47.2 Ventricular tachycardia; Z68.41 Body mass index [BMI] 40.0-44.9, adult; E66.01 Morbid (severe) obesity due to excess calories
CPT/HCPCS: 36415; 71275; 80048; 83605; 83735; 84443; 84484; 85025; 85379; 87040; 87449; 93005; 93306; 94667; 94668; 94762; 97802; 99284; J7030; Q9957; Q9967; A4216; C8929

== ENCOUNTER 2019-02-09 07:30 | Outpatient (RCR) | payer BC, SELFPAY ==
--- NOTE | 2019-04-04 09:21 | HP.PT.NRP ---
HP - Discharge Summary (1) - Patient Information CLAUDE FORBES was seen in my office for initial evaluation on 01/12/19. The following Plan of Care was established for this patient: Initial Frequency: 2x /Week Initial Duration: 2-4 Weeks - Anticipated Interventions Patient/Client Instruction: Educate patient on: Condition, Plan of Care For the Purpose of:: To improve self management Therapeutic Exercise to Include: Strength training, Endurance training, Body mechanics, Postural training, Flexibilty training, Dynamic Lumbar Stabilization For the Purpose of:: To decrease pain, To increase ROM, To improve muscle performance and motor function IF ES: Yes Cryotherapy (ice pack, ice massage): Yes For the Purpose of:: To decrease pain This patient was last seen in our office . Pertinent comments regarding their Physical therapy will appear below: Pt was treated for 3 PT visits for his LBP through the date of 02/09/19. Pt has not returned through todays date and is discontinued at this time. At this point I will be discontinuing this patient from physical therapy. I would be happy to see this patient again in the future if found appropriate by the physician. Thank you! Ricardo Talley, PT, ATC
--- NOTE | 2019-04-04 09:22 | HP.PTEVAL_ITS ---
Patient's Visit Information CLAUDE FORBES is a 54 year old M referred to Physical Therapy by Christa Guerra with a diagnosis of LBP. Date of Evaluation: 01/12/19 Physical Therapist: Ricardo Talley, PT, ATC - Visit Plan Frequency: 2x /Week Duration: 2-4 Weeks Plan: Postural education, core stab ex's, bike, and HEP. NO SUPINE EX'S - Subjective Findings: Pt reports his LBP has been sore for about one month. Pt reports he had x rays which revealed spondylolithesis with a possible lysis. Pt reports his pain has been getting better. Pt reports he can do everything he always could do but lying flat on his back. Pt reports he has sleep difficulty at this time secondary to pain. Pt reports his pain is centally located near the L5 region. Pt reports he has no idea how this all occurred. Pt reports no tingling or nu mbness in LE's at this time. Pt reports his LBP is rated at 2/10 at rest, and increases to 5/10 at worst. - Pain LBP Pain Intensity (Out of 10): 3 Pain Intensity Range: 5 - Objective Neuro: B LE sensation is WNL to light touch. B patellar reflex= 2/3. MMT: B LE's 5/5 throughout. L/S ROM: WNL all planes except ext which is minimally limited. Gait: Pt was able to ambulate greater than 1200' without limitation or LBP - Goals Goal 1:: Decrease LBP x 50% to aid with sleep Goal Time Frame: 2-4 Weeks Goal 2:: Increase core stability x 1 grade to aid with sleep Goal Time Frame: 2-4 Weeks Goal 3:: I with HEP Goal Time Frame: 2-4 Weeks - Rehabilitation Potential Physical Therapy Diagnosis: Pt has LBP, decreased L/S ROM, and difficulty with lying supine secondary to having deg changes in the L/S Rehabilitation Potential: Good - Anticipated Interventions Patient/Client Instruction: Educate patient on: Condition, Plan of Care For the Purpose of:: To improve self management Therapeutic Exercise to Include: Strength training, Endurance training, Body mechanics, Postural training, Flexibilty training, Dynamic Lumbar Stabilization For the Purpose of:: To decrease pain, To increase ROM, To improve muscle performance and motor function IF ES: Yes Cryotherapy (ice pack, ice massage): Yes For the Purpose of:: To decrease pain Thank you for the opportunity to evaluate your patient. For Medicare and Medicare HMO plans, please review the plan of care and approve it. It will need to be FAXED BACK to us at [phone] for Medicare purposes. For Medicare only, by signing this I certify the plan of care. Please let me know if there are questions or concerns regarding this plan of care. Physician Signature: Date:
== END 2019-02-09 19:00 | disposition home or self-care (01) ==
LOC: PT 07:30
PROVIDERS: Family Provider Family Medicine; PCP Family Medicine; Referring Provider Physician Assistant; Visit Provider Physician Assistant
DX: M51.36 Other intervertebral disc degeneration, lumbar region (principal); M43.16 Spondylolisthesis, lumbar region
CPT/HCPCS: 97110; 97161

== ENCOUNTER → 2019-06-15 10:52 | Outpatient (CLI) | payer BC, SELFPAY ==
[2019-01-16 23:45] VITALS: BMI 44.0
--- NOTE | 2019-06-15 12:54 | STRESSREP_ITS ---
Stress Test Report Date: 06-15-2019 Procedure: Exercise tolerance test Indications: Cardiac dysrhythmia Consent: Per the patient Procedure: The patient exercised on a Juan protocol for 6 minutes completing Stage II achieving a peak heart rate of 150 bpm (89 % predicted maximal heart rate) with a peak blood pressure 172/78 mmHg and a peak MET capacity of approximately 7 mET's. The baseline ECG demonstrated normal sinus rhythm. The peak exercise ECG demonstrated no obvious ECG changes. There was an isolated PVC during exercise. The functional capacity was considered average. The patient had no complaint of chest discomfort during exercise or recovery. The examination was discontinued secondary to dyspnea. Impression: 1. Technically adequate (percent predicted maximal heart rate greater than 85%) exercise tolerance test 2. Peak exercise ECG with with no obvious ECG changes 3. There was an isolated PVC during exercise This note was generated with [employer] software. It may contain incorrect words, spelling, and punctuation that were not noted in checking the note before signing.
== END ==
PROVIDERS: Family Provider Family Medicine; PCP Family Medicine; Referring Provider Family Medicine; Visit Provider Family Medicine
DX: I47.2 Ventricular tachycardia (principal)
CPT/HCPCS: 93017

== ENCOUNTER → 2019-06-25 20:03 | Outpatient (CLI) | payer BC, SELFPAY ==
[2019-01-16 23:45] VITALS: BMI 44.0
== END ==
PROVIDERS: Family Provider Family Medicine; PCP Family Medicine; Referring Provider Family Medicine; Visit Provider Family Medicine
DX: R06.81 Apnea, not elsewhere classified (principal)
CPT/HCPCS: 95810; 95811

== ENCOUNTER → 2019-07-06 06:30 | Outpatient (CLI) | payer BC, SELFPAY ==
[2019-01-16 23:45] VITALS: BMI 44.0
== END ==
PROVIDERS: PCP Family Medicine; Referring Provider Family Medicine; Visit Provider Family Medicine
DX: Z46.89 Encounter for fitting and adjustment of other specified devices (principal)

== ENCOUNTER 2020-02-29 17:08 | Emergency (ER) | payer BC, SELFPAY ==
[2019-01-16 23:45] VITALS: BMI 44.0
[2020-02-29 17:10] VITALS: BP 150/86; PULSE 71; RESP 15; TEMP 36.3; O2SAT 99; BMI 48.6
--- NOTE | 2020-02-29 17:42 | ED.VIS.GEN ---
History of Present Illness Chief Complaint: Lower Extremity Injury Informant: Patient Narrative: Patient states that he has been seeing most orthopedics at [place]. He had cellulitis of the left leg about 2 weeks ago which resolved. He has been having some discomfort in the medial aspect of the knee as well as posterior. He was given an outpatient order form for a duplex ultrasound to rule out DVT. He arrived at the hospital too late for that to be performed and so checked into the emergency department to get it performed. - Past Medical History (1) Pneumonia Status: Resolved (2) BMI 40.0-44.9, adult Status: Chronic Past Medical History - Allergies and Home Meds Allergies/Adverse Reactions: Allergies Sulfa (Sulfonamide Antibiotics) Allergy (Verified 02/29/20 17:08) Rash Primary Care Physician: Ashley Scherer DO [Primary Care Provider] - Surgical History: no surgical history Smoking Status: Never smoker - Family History Maternal Family History: Reports: COPD, Diabetes Paternal Family History: Reports: COPD, Diabetes Review of Systems General: Denies: Chills, Fever, Sweats Eyes: Denies: Visual changes - bilaterally, Diplopia ENT: Denies: Rhinorrhea, Sore throat Cardiovascular: Denies: Chest pain, Palpitations Respiratory: Denies: Dyspnea, Cough, Dyspnea on exertion Gastrointestinal: Denies: Abdominal pain, Nausea, Vomiting, Diarrhea, Melena, Hematochezia Genitourinary: Denies: Dysuria, Hematuria, Frequency Musculoskeletal: Reports: Extremity Pain. Denies: Back pain Skin: Denies: Rash, Wounds Neurological: Denies: Headache, Weakness, Numbness Physical Exam Vital Signs/Narrative: Vital Signs Temp Pulse Resp BP Pulse Ox 02/29/20 17:10 97.3 F L 71 15 150/86 H 99 Inital Vital Signs reviewed: Yes General: Well nourished, Well developed, Obese, No Acute Distress Head: Normocephalic, Atraumatic Eyes: Perrl, EOMI ENT: Moist mucous membranes, No rhinorrhea Neck: Supple, Nontender Cardiovascular: Regular rate, Regular rhythm, No murmurs Respiratory: No distress, CTA bilaterally, Chest nontender Abdomen: Soft, Nontender, Nondistended, Normal bowel sounds Back: Nontender, Normal Inspection Extremities: Tenderness - Mild tenderness posterior to the knee and medially. Bilateral leg swelling that is symmetric. No palpable cords. No varicosities noted. Skin: Normal color, No rash Neurological: Alert, Oriented x3, Cranial nerves II-XII grossly intact, Normal Strength, Normal Sensation Psychological: Normal affect, Normal Mood Diagnostic/Tx/Re-eval - Medical Decision Making Duplex ultrasound was negative for DVT. Patient will be discharged home with instructions to follow-up with his orthopedic surgeon. ED Disposition - Plan for ED Patient: Disposition: Home or Assisted Living Diagnosis: Left knee pain Instructions: ED Meniscal Injury Knee Poss Referrals: Ashley Scherer DO [Primary Care Provider] - As Needed Additional Instructions: Follow-up with orthopedics as scheduled
--- NOTE | 2020-02-29 17:59 | US_ITS ---
STUDY: VENOUS DOPPLER ULTRASOUND - LEFT LOWER EXTREMITY REASON FOR EXAM: Male, 55 years old. LT KNEE PAIN TECHNIQUE: Ultrasound evaluation of the deep vein system to include morales-scale imaging and compression was performed. Morales-scale imaging and Doppler sonographic evaluation, including duplex spectral analysis and qualitative color flow sonography, was performed. COMPARISON: None. FINDINGS: Common Femoral Vein: Normal compression, spontaneity and augmentation. Normal color Doppler. Common Femoral Vein/Greater Saphenous Junction: Normal compression, spontaneity and augmentation. Normal color Doppler. Deep Femoral Vein: Normal compression, spontaneity and augmentation. Normal color Doppler. Femoral Proximal: Normal compression, spontaneity and augmentation. Normal color Doppler. Femoral Middle: Normal compression, spontaneity and augmentation. Normal color Doppler. Femoral Distal: Normal compression, spontaneity and augmentation. Normal color Doppler. Popliteal Vein: Normal compression, spontaneity and augmentation. Normal color Doppler. Posterior Tibial Vein: Normal compression, spontaneity and augmentation. Normal color Doppler. Peroneal Vein: Normal compression, spontaneity and augmentation. Normal color Doppler. US/Venous Duplex Imag/Limited/Uni IMPRESSION: Normal venous Doppler ultrasound of the lower extremity. Electronically Signed: Sindhu Lara, at 18:52 EDT Tel , Service support ,
[2020-02-29 18:38] VITALS: BP 117/69; PULSE 62; RESP 15; O2SAT 99
== END 2020-02-29 18:39 | disposition home or self-care (01) ==
PROVIDERS: Emergency Provider Emergency Medicine; PCP Family Medicine
DX: M25.562 Pain in left knee (principal); M79.89 Other specified soft tissue disorders; E66.9 Obesity, unspecified
CPT/HCPCS: 93971; 99282

== ENCOUNTER 2020-05-19 13:00 | Outpatient (RCR) | payer BC, SELFPAY ==
--- NOTE | 2020-03-31 11:56 | HP.PTEVAL_ITS ---
Patient's Visit Information CLAUDE FORBES is a 55 year old M referred to Physical Therapy by YOVANY Uriostegui with a diagnosis of L complex tear medial meniscus, OA L knee. Date of Evaluation: 03/31/20 Physical Therapist: DAVIN Charles - Visit Plan Frequency: 2-3x /Week Duration: 4-6 Weeks Plan: 2-3X/ week for 4-6 weeks for L knee AROM, L LE stretching, L hip and knee strengthening, gait training with HEP and modalities as needed. - Subjective Pt has a menisus tear in L knee. He is not sure how he did it.. thinks it is from golf... a lot of torque on front part of knee. They did an MRI. He has an onset of arthrisits. They did cortizone shot yesterday and 3 months to surgery if going to do it. He feels not different yet with the shot. It hurts him when he twists. He has no pain in sitting. Pain has gotten better. He notices the pain a little bit with walking around. Stairs: He is starting to go recip up and down stairs.... a little sore. It s tight when stand up from sitting too long. Working from home. - Pain L knee pain Pain Intensity (Out of 10): 0 Pain Intensity Range: 5 - Objective Gait: Walks with slightly decreased stance time on the L. Sit to stand: able to get out of a chair without his UE's. L knee AROM: -2 degrees from full ext to 110 degrees knee flexion. R knee AROM: -1 degrees from full ext to 110 degrees flexion knee. B hip abd 4/5m B hip ext 4-/5, B hip flex 4_+/5, B knee ext 4/5, B knee flex 4/5. Tight B hip flex, HS and gastroc. No tenderness to palpation - Goals Goal 1:: I HEP for stretching and overall strengthening. Goal Time Frame: 4-6 Weeks Goal 2:: Decrease L knee pain by 50% to 2/10 with ADL's Goal Time Frame: 4-6 Weeks Goal 3:: Increase L hip and knee strengthe by 1/2 muscle grade (B hip abd 4/5m B hip ext 4-/5, B hip flex 4_+/5, B knee ext 4/5, B knee flex 4/5) Goal Time Frame: 4-6 Weeks Goal 4:: Walk with no antalgic gait Goal Time Frame: 4-6 Weeks - Rehabilitation Potential Rehabilitation Potential: Good - Anticipated Interventions Thank you for the opportunity to evaluate your patient. For Medicare and Medicare HMO plans, please review the plan of care and approve it. It will need to be FAXED BACK to us at [phone] for Medicare purposes. For Medicare only, by signing this I certify the plan of care. Please let me know if there are questions or concerns regarding this plan of care. Physician Signature: Date:
--- NOTE | 2020-04-23 12:40 | HP.PTREVAL ---
YOVANY Uriostegui, It has been my pleasure to treat CLAUDE FORBES over the last 10 visits for L complex tear medial meniscus, OA L knee. Please see the progress note below for an update on the physical therapy plan of care! Subjective: Pain is still there if he sits too long and straightens it. He feels loose and good when he leaves PT. It still hurts when he twists it. The pain comes and goes. If he does the leaves then he is back to stairs one step at a time. Pt reports that he can not do surgery until Jun. He follows up the first week in May with the DR. Pt reports that he is getting stronger and realizes that it will take several weeks for additional strength. Pt reports that his main concern is sitting and then straightening his leg out and the posterior knee pain. Objective/Function: Gait: slight antalgic gait with increase stance time on the L LE. LE MMT: B hip abd 4/5 B hip ext 4-/5, B hip flex 4_+/5, B knee ext 4/5, B knee flex 4/5) Plan Plan: Encouraged pt to ride bike at home 5-10 min everyday and see if helps the swelling feeling. 2-3X/ week for 3 additional weeks for L knee AROM, L LE stretching, L hip and knee strengthening, gait training with HEP and modalities as needed. Goals Goal 1:: I HEP for stretching and overall strengthening. Goal Time Frame: 4-6 Weeks Goal 2:: Decrease L knee pain by 50% to 2/10 with ADL's Goal Time Frame: 4-6 Weeks Goal Progress: Progressing Goal 3:: Increase L hip and knee strengthe by 1/2 muscle grade (B hip abd 4/5m B hip ext 4-/5, B hip flex 4_+/5, B knee ext 4/5, B knee flex 4/5) Goal Time Frame: 4-6 Weeks Goal Progress: Progressing Goal 4:: Walk with no antalgic gait Goal Time Frame: 4-6 Weeks Goal Progress: Progressing Anticipated Interventions Please do not hesitate to contact me at [phone] by phone or if you have questions or concerns regarding this new plan of care! Sincerely, Niharika Gonzalez, DAVIN
--- NOTE | 2020-05-19 13:31 | HP.PTDCSUM ---
It has been my pleasure to treat CLAUDE FORBES referred by YOVANY Uriostegui, with the diagnosis of L complex tear medial meniscus, OA L knee for a total of 18 visit(s). Discharge Date: 05/19/20 Please see the following information for a summary of their discharge status. Subjective: Pt reports that it only hurts when it is twisted. He is planning on doing his own [facility]. Strength his improved greatly but the pain with certain movements has not. L knee pain Pain Intensity (Out of 10): 0 % Improvement: 65 Objective/Function: No issue with exercises today. Pt still walks with increased stance time on the R LE. LE MMT: B hip abd 4/5 B hip ext 4-/5, B hip flex 4+/5, B knee ext 4+/5, B knee flex 4+/5) Goal 1:: I HEP for stretching and overall strengthening. Goal Progress: Goal Met Goal 2:: Decrease L knee pain by 50% to 2/10 with ADL's Goal Progress: Goal Met Goal 3:: Increase L hip and knee strengthe by 1/2 muscle grade (B hip abd 4/5m B hip ext 4-/5, B hip flex 4_+/5, B knee ext 4/5, B knee flex 4/5) Goal Progress: Progressing Goal 4:: Walk with no antalgic gait Goal Progress: Progressing Plan: [facility] Discharge Comments: DC PT to [facility] If there are questions or concerns regarding this patient's physical therapy, please feel free to call me at [phone]. Thank you for the referral of this patient. Sincerely, Niharika Gonzalez, MPT
== END 2020-05-19 19:00 | disposition home or self-care (01) ==
LOC: PT 13:00
PROVIDERS: PCP Family Medicine; Referring Provider Physician Assistant; Visit Provider Physician Assistant
DX: S83.232D Complex tear of medial meniscus, current injury, left knee, subsequent encounter (principal); M17.12 Unilateral primary osteoarthritis, left knee
CPT/HCPCS: 97014; 97110; 97161; G0283

== ENCOUNTER → 2021-02-03 08:54 | Outpatient (CLI) | payer BC, SELFPAY ==
[2021-02-05 19:41] LABS: PSA, Free 0.55 ng/mL; PSA, Free % 14.5 % (.); PSA, Total Ultrasensitive 3.8 ng/mL (0.0-4.0)
== END ==
PROVIDERS: PCP Family Medicine; Visit Provider Nurse Practitioner Adult Health
DX: R97.20 Elevated prostate specific antigen [PSA] (principal)
CPT/HCPCS: 36415; 84153; 84154

== ENCOUNTER → 2021-03-02 11:44 | Outpatient (CLI) | payer BC, SELFPAY | PROVIDERS: PCP Family Medicine; Referring Provider Urology; Visit Provider Urology | DX: U07.1 COVID-19 (principal) | CPT/HCPCS: 87635; C9803; U0005; U0003 ==

== ENCOUNTER → 2021-04-03 | Outpatient (CLI) | payer BC, SELFPAY ==
--- NOTE | 2021-04-03 | IMM_PTH ---
PATIENT: CLAUDE FORBES [facility] U[id number] AGE/SX: 56/M ROOM: RE04/03/[address]: Dr. Nikunj Jones MD : 1965 BED: DIS: 04/03/2021 SPEC #: [id number] RECD: 04/07/21 12:50 STATUS: JAYLAN REQ #: [id number] ANTHONY: 04/03/21 00:[address]: Nikunj Jones DEPT: IMMUNOHISTOCHEMISTRY RECD BY: Mitra Cline ENTERED: 04/07/21 12:51 SP TYPE: IMMUNO OTHR DR: Dr. Ashley Scherer, DO Tissues: A - PROSTATE RIGHT Procedures: P40 (add) 34BE12 (initial) PHYSICIAN & INSTITUTION [place] [id number] SPECIMEN INFORMATION: Tissue Source: A - Right prostate, apex, core biopsy Clinical Info: Elevated PSA Specimen Number: [id number] CPT code: 21848, 30678 METHODOLOGY: Deparaffinized sections of prefer/formalin-fixed tissue or PAP/DQ stained slides are incubated with monoclonal/polyclonal antibodies/oligonucleotide probes. Localization is made via biotin free immunoperoxidase method. Appropriate controls are performed and reacted as expected. Results on target cell population are indicated in the following table: RESULTS: ANTIBODY / CLONE RESULT Block A P40 (BC28) negative 34BE12 (34BE12) negative These tests were developed and their performance characteristics determined by [facility]. They may not have been cleared or approved by the U.S. Food and Drug Administration. The FDA has determined that such clearance or approval is not necessary. The above immunohistochemical/dualISH markers are ordered and reviewed by the Pathologist. INTERPRETATION: A. Right prostate, apex, core biopsy: Two minute foci of adenocarcinoma. SJ:kareem 04/08/2021
--- NOTE | 2021-04-03 13:15 | PROSBIL_PTH ---
PATIENT: CLAUDE FORBES [facility] U#:[id number] AGE/SX: 56/M ROOM: RE04/03/[address]: Dr. Nikunj Jones MD : 1965 BED: DIS: 04/03/2021 SPEC #: [id number] RECD: 04/03/21 14:51 STATUS: JAYLAN REManav #: [id number] ANTHONY: 04/03/21 13:[address]: Nikunj Jones DEPT: SURGICAL PATHOLOGY RECD BY: Jan Madrid ENTERED: 04/06/21 08:10 SP TYPE: PROST BX LASHONDA DR: Dr. Ashley Scherer, [facility] Tissues: A - PROSTATE RIGHT B - PROSTATE RIGHT C - PROSTATE RIGHT D - PROSTATE LEFT E - PROSTATE LEFT F - PROSTATE LEFT Procedures: PROSTATE BX HEADER OPERATION: Transrectal ultrasound-guided biopsy of prostate PRE-OP DIAGNOSIS: Elevated PSA, family history malignant neoplasm of prostate TISSUE SUBMITTED: A - Right apex, B - Right mid, C - Right base, D - Left apex, E - Left mid, F - Left base MICROSCOPIC DIAGNOSIS A. Right prostate, apex, core biopsy: Two minute foci of prostatic adenocarcinoma. Pope grade: 3+3=6 Number of cores involved: 2/2 Proportion of tissue involved: <5% Perineural invasion: Not identified. Greatest tumor length: <0.1 cm Chronic inflammation. See comment. B. Right prostate, mid, core biopsy: Negative for malignancy. C. Right prostate, base, core biopsy: Negative for malignancy. D. Left prostate, apex, core biopsy: Prostatic adenocarcinoma. Vinnie grade: 3+3=6 Number of cores involved: 2/2 Proportion of tissue involved: ~75% Perineural invasion: Not identified. Greatest tumor length: 0.8 cm E. Left prostate, mid, core biopsy: Prostatic adenocarcinoma. Pope grade: 3+3=6 Number of cores involved: 2/2 Proportion of tissue involved: 30% Perineural invasion: Not identified. Greatest tumor length: 0.3 cm Chronic inflammation. F. Left prostate, base, core biopsy: Negative for malignancy. Chronic inflammation. SJ:kareem 04/07/2021 COMMENT A. Immunohistochemistry ([id number]) supports the above diagnosis. Case has been reviewed in consultation with Dr. Wiggins who concurs with the above diagnosis. IDC:AM MICROSCOPIC DESCRIPTION Slides are reviewed. GROSS DESCRIPTION A - Received is one container designated prostate, right apex. The specimen consists of two elongated fragments of light rust-white soft tissue each measuring 1.5 cm in length and 0.1 cm in diameter. The specimen is totally submitted in one cassette. B - Received is one container designated prostate, right mid. The specimen consists of two elongated fragments of light rust-white soft tissue each measuring 1.2 cm in length and 0.1 cm in diameter. The specimen is totally submitted in one cassette. C - Received is one container designated prostate, right base. The specimen consists of two elongated fragments of light rsut-white soft tissue each measuring 1 cm in length and 0.1 cm in diameter. The specimen is totally submitted in one cassette. D - Received is one container designated prostate, left apex. The specimen consists of two elongated fragments of light rust-white soft tissue measuring 0.5 and 1 cm in length and 0.1 cm in diameter. The specimen is totally submitted in one cassette. E - Received is one container designated prostate, left mid. The specimen consists of two elongated fragments of light rust-white soft tissue measuring 1 and 1.5 cm in length and 0.1 cm in diameter. The specimen is totally submitted in one cassette. F - Received is one container designated prostate, left base. The specimen consists of two elongated fragments of light rust-white soft tissue measuring 0.5 and 1 cm in length and 0.1 cm in diameter. The specimen is totally submitted in one cassette. / SJ:rg 04/06/2021 TC:0 CPT: 98282 x6
== END | disposition home or self-care (01) ==
LOC: LABSPEC 15:13
PROVIDERS: PCP Family Medicine; Referring Provider Urology; Visit Provider Urology
DX: R97.20 Elevated prostate specific antigen [PSA] (principal); Z80.42 Family history of malignant neoplasm of prostate
CPT/HCPCS: 88305; 88341; 88342; G0416

== ENCOUNTER 2021-07-29 09:21 | Outpatient (RCR) | payer BC, SELFPAY | END 2021-08-03 23:59 | LOC: NS 09:21 | PROVIDERS: PCP Family Medicine; Referring Provider Family Medicine; Visit Provider Family Medicine | DX: Z71.3 Dietary counseling and surveillance (principal); E66.01 Morbid (severe) obesity due to excess calories; Z68.42 Body mass index [BMI] 45.0-49.9, adult | CPT/HCPCS: 97802 ==

== ENCOUNTER 2021-08-11 16:35 | Outpatient (RCR) | payer BC, SELFPAY | END 2021-09-03 23:59 | LOC: NS 16:35 | PROVIDERS: PCP Family Medicine; Referring Provider Family Medicine; Visit Provider Family Medicine | DX: Z71.3 Dietary counseling and surveillance (principal); E66.01 Morbid (severe) obesity due to excess calories; Z68.42 Body mass index [BMI] 45.0-49.9, adult | CPT/HCPCS: 97803 ==

== ENCOUNTER 2024-09-08 03:48 | Emergency (ER) | payer BC, SELFPAY ==
[2024-09-08 03:49] VITALS: BP 109/87; PULSE 86; RESP 18; TEMP 36.6; O2SAT 99; BMI 47.2
--- NOTE | 2024-09-08 04:11 | EDS_ITS ---
HPI History of Present Illness Chief Complaint: Rash Informant: patient Narrative Narrative: Patient is a 59-year-old male who reports no significant past medical history. He states that on he noticed a vague dull pain sensation in his right upper back/chest region. He states he did not think much of this and felt that he simply pulled a muscle. He states that the symptoms persisted today and slightly worsened and therefore he felt that potentially soaking in the hot tub would improve his pain. He states he did this without improvement and after getting out noticed he now has a rash along the right back and chest wall. He states that they contacted the nurse hotline and there was concern this could be shingles and therefore he was vies to come to the hospital for evaluation. [facility] Medical History (Updated 09/08/24 @ 04:[address] Sadi Smith, DO) Acute bronchitis, unspecified Torn Achilles tendon Cancer Home Medications ?Medication ?Instructions ?Recorded ?Last Taken ?Type gabapentin 300 mg capsule 300 mg PO TID 14 days #42 ca ps 09/08/24 Unknown Rx oxycodone-acetaminophen 5 mg-325 1 tab PO Q6H PRN pain 5 days #20 09/08/24 Unknown Rx mg tablet (Percocet) tabs valacyclovir 1 gram tablet 1,000 mg PO TID 7 days #21 tabs 09/08/24 Unknown Rx (Valtrex) Allergy/AdvReac Type Severity Reaction Status Date / Time Sulfa (Sulfonamide Allergy Rash Verified 09/06/24 08:41 Antibiotics) Family History (Updated 09/06/24 @ 08:51 by Radha Morrow) Father Prostate cancer Mother Congestive heart failure (CHF) Surgical History History of foot surgery History of right knee surgery Social History (Updated 09/06/24 @ 08:50 by Radha Morrow) Smoking Status: Never smoker alcohol intake: current alcohol intake frequency: a few times a week ROS ROS ED Constitutional Constitutional ED: Denies chills or fever(s) Eyes Eyes: Denies blurry vision or change in vision ENT ENT ED: Denies sore throat Cardiovascular Cardiovascular: Reports chest pain and other Details: Positive chest wall pain Respiratory/Chest Respiratory/Chest: Denies cough or dyspnea Gastrointestinal Gastrointestinal: Denies abdominal pain, diarrhea, nausea or vomiting Genitourinary Genitourinary ED: Denies dysuria Musculoskeletal Musculoskeletal: Reports back pain Integumentary Reports rash Neurologic Neurologic: Denies headache(s), paresthesias or weakness Hematologic/Lymphatic Hematologic/Lymphatic: Denies easy bleeding or easy bruising Allergic/Immunologic Allergic/Immunologic ED: Denies mouth swelling or tongue swelling EXAM Physical Exam Const Vital Signs: 09/08/24 03:49 Temperature 98 F Temperature Source Oral Pulse Rate 86 Respiratory Rate 18 Blood Pressure 109/87 H Blood Pressure Mean 94 Pulse Ox 99 Oxygen Delivery Method Room Air Positive well nourished, well developed and obese General Appearance ED: well developed Nutritional Appearance: obese HEENT Reports moist mucous membranes HEENT Narrative: No tongue or lip swelling no oral lesions no airway edema or compromise Eyes PERRL and EOMs intact bilaterally Neck supple Neck Narrative: No nuchal rigidity or meningeal signs Resp normal respiratory effort and clear to auscultation bilaterally Cardio regular rate and regular rhythm Extremity normal to inspection Neuro oriented x3, CN's II-XII intact bilaterally and no sensory deficits noted Sensorium / Orientation: alert Motor Exam: strength 5/5 throughout Psych mental status grossly normal Skin Skin Narrative: Patient has a erythematous vesicular rash in the T4 dermatome that does not cross midline most consistent with herpes zoster No surrounding erythema or warmth to suggest cellulitis no lymphangitic streaking or obvious abscess formation No other area of skin has the rash present MDM MDM MDM Narrative Medical decision making narrative: Patient presented to the ER with stable vitals. He reported 2 days of mild right back and chest pain without report of injury. He states that he then noticed a rash. The symptoms are consistent with herpes zoster and he does admit to having varicella-zoster as a child. The rash is in the T4 dermatome and does not have surrounding secondary findings of infection such as cellulitis or abscess. Vitals are stable and the remainder the exam is normal going against a disseminated zoster. Therefore there is no need for further intervention or workup. As patient reports symptoms have been present for 2 days he does fall into the antiviral window and therefore will prescribe Valtrex. I will add gabapentin and Percocet for improved pain control. However as he does not have signs of disseminated infection there is no ocular involvem ent no signs of encephalitis associate with this either there is no need for further intervention or workup and he is otherwise safe for discharge History & Record Review Discussion w/independent historian: Patient Discharge Plan Triage Chief Complaint: Rash ED Provider: Sadi Smith Dx/Rx/DC Orders Clinical Impression: Herpes zoster, BMI 40.0-44.9, adult Instructions: ED Shingles (Herpes Zoster) Prescriptions: New gabapentin 300 mg capsule 300 mg PO TID 14 Days Qty: 42 0RF oxycodone-acetaminophen [Percocet] 5-325 mg tablet 1 tab PO Q6H PRN (Reason: pain) 5 Days Qty: 20 0RF valacyclovir [Valtrex] 1 gram tablet 1,000 mg PO TID 7 Days Qty: 21 0RF Primary Care Provider: Ashley Scherer Referrals: Ashley Scherer DO [Primary Care Provider] - Activity Restrictions/Additional Instructions: Your exam is consistent with shingles. Please take the Valtrex as directed to help resolve the shingles infection. Use the gabapentin and Percocet as directed for pain control. If you have worsening of symptoms or any further concerns please return to the ER for repeat evaluation. Print Language: Italian Disposition Disposition: Home, Self Care Discharge Date/Time: 09/08/24 04:28
[2024-09-08] MEDS: Gabapentin 300 MG Capsule PO (04:26)
[2024-09-08] MEDS: HYDROcodone Bitartrate/Apap 5/325 Tablet PO (04:27)
== END 2024-09-08 04:28 | disposition home or self-care (01) ==
PROVIDERS: Emergency Provider Emergency Medicine; PCP Family Medicine; Visit Provider Emergency Medicine
DX: B02.9 Zoster without complications (principal); Z68.41 Body mass index [BMI] 40.0-44.9, adult; E66.9 Obesity, unspecified
CPT/HCPCS: 99283

== ENCOUNTER 2024-10-03 01:56 | Emergency (ER) | payer BC, SELFPAY ==
[2024-10-03 01:56] VITALS: BP 202/61; PULSE 67; RESP 18; TEMP 36.5; O2SAT 99; BMI 45.6
--- NOTE | 2024-10-03 02:17 | EX.ED.DYSGE1 ---
HPI History of Present Illness Chief Complaint: Other, Pain/Inj Informant: patient Narrative Narrative: Patient is a 59-year-old male who was seen at the beginning of this month and diagnosed with shingles. He states that he has been receiving treatment as directed and he has noted that his rash is resolving. However he states that despite the improving rash/infection his pain has been worsening. He states his family doctor placed him on gabapentin twice a day but despite taking it and using topical capsaicin his pain has been progressing. He states he could not sleep tonight secondary to the increased pain and therefore comes to the hospital for evaluation. He states that there has been no recent trauma or excessive activity and other than the recent diagnosis of shingles he states he is overall been healthy and feeling at his baseline [facility] Medical History (Updated 10/03/24 @ 06:[address] Sadi Smith, DO) Acute bronchitis, unspecified Torn Achilles tendon Cancer Home Medications ?Medication ?Instructions ?Recorded ?Last Taken ?Type bupropion HCl 300 mg 24 hr tablet, 150 mg PO DAILY 10/03/24 Unknown History extended release gabapentin 300 mg capsule 300 mg PO Q12H 10/03/24 Unknown History gabapentin 600 mg tablet 600 mg PO TID 30 days #90 tabs 10/03/24 Unknown Rx levocetirizine 5 mg tablet 5 mg PO QHS 10/03/24 Unknown History oxycodone-acetaminophen 5 mg-325 1 tab PO Q6H PRN pain 5 days #20 10/03/24 Unknown Rx mg tablet (Percocet) tabs Allergy/AdvReac Type Severity Reaction Status Date / Time Sulfa (Sulfonamide Allergy Rash Verified 09/06/24 08:41 Antibiotics) Family History (Updated 09/06/24 @ 08:51 by Radha Morrow) Father Prostate cancer Mother Congestive heart failure (CHF) Surgical History History of foot surgery History of right knee surgery Social History (Updated 09/06/24 @ 08:50 by Radha Morrow) Smoking Status: Never smoker alcohol intake: current alcohol intake frequency: a few times a week ROS ROS ED Constitutional Constitutional ED: Denies chills or fever(s) Eyes Eyes: Denies change in vision ENT ENT ED: Denies sore throat Cardiovascular Cardiovascular: Denies chest pain Respiratory/Chest Respiratory/Chest: Denies cough or dyspnea Gastrointestinal Gastrointestinal: Denies abdominal pain, diarrhea, nausea or vomiting Genitourinary Genitourinary ED: Denies dysuria Musculoskeletal Musculoskeletal: Reports back pain and other Details: Positive back and chest wall pain Integumentary Reports rash Neurologic Neurologic: Denies headache(s) Hematologic/Lymphatic Hematologic/Lymphatic: Denies easy bleeding or easy bruising EXAM Physical Exam Const Vital Signs: 10/03/24 01:56 10/03/24 02:00 10/03/24 02:26 Temperature 97.7 F L 98 F Temperature Source Oral Pulse Rate 67 74 Respiratory Rate 18 14 Respiratory Effort Normal Respiratory Pattern Normal Blood Pressure 202/61 H 169/99 H Blood Pressure Mean 108 122 Pulse Ox 99 98 Oxygen Delivery Method Room Air Positive well nourished, well developed and obese General Appearance ED: well developed Nutritional Appearance: obese HEENT HEENT Narrative: Normocephalic atraumatic Eyes PERRL and EOMs intact bilaterally General Eye ED: Negative for scleral icterus Neck supple Neck Narrative: No nuchal rigidity or meningeal signs Chest Wall Chest Narrative: There is a healing erythematous and blanchable rash along the T4 dermatome consistent with resolving shingles No subcutaneous emphysema noted No secondary findings to suggest cellulitis or abscess Resp normal respiratory effort and clear to auscultation bilaterally Cardio regular rate and regular rhythm Extremity normal to inspection Neuro oriented x3, CN's II-XII intact bilaterally and no sensory deficits noted Sensorium / Orientation: alert Motor Exam: strength 5/5 throughout Psych mental status grossly normal Skin Skin Narrative: Healing/resolving shingles around the T4 dermatome as documented above MDM MDM MDM Narrative Medical decision making narrative: Patient presented to the ER hypertensive but is in pain and this is a normal physiologic response and otherwise with stable vitals. He denies any recent trauma or excessive activity and reports that his rash has been slowly improving. Despite this he has been having increasing pain. With his recent diagnosis of shingles this is most likely chronic nerve pain from the infection. He is currently on proper medication and gabapentin and capsaicin. He does not have findings concerning for rib fracture or acute coronary syndrome or secondary infection such as cellulitis or abscess. Therefore do not feel there is need for any type of workup at this time. The patient will be given oxycodone for pain control in ER and Percocet for home. His gabapentin will be increased from 300 to 600 mg per dose to help with pain as well. However as he does not have signs of secondary infection or trauma there is no need for further workup or admission and he is otherwise safe for discharge History & Record Review Discussion w/independent historian: Patient Discharge Plan Triage Chief Complaint: Other, Pain/Inj ED Provider: Sadi Smith Dx/Rx/DC Orders Clinical Impression: Shingles (herpes zoster) polyneuropathy, BMI 40.0-44.9, adult Instructions: ED Neuropathy, Peripheral, ED Shingles (Herpes Zoster) Prescriptions: New gabapentin 600 mg tablet 600 mg PO TID 30 Days Qty: 90 0RF oxycodone-acetaminophen [Percocet] 5-325 mg tablet 1 tab PO Q6H PRN (Reason: pain) 5 Days Qty: 20 0RF No Action bupropion HCl 300 mg tablet extended release 24 hr 150 mg PO DAILY gabapentin 300 mg capsule 300 mg PO Q12H levocetirizine 5 mg tablet 5 mg PO QHS Primary Care Provider: Ashley Scherer Referrals: Ashley Scherer, [Primary Care Provider] - Activity Restrictions/Additional Instructions: When you return home from the ER please take 600 mg of gabapentin and 2 [id number] Benadryl. This combined with the oxycodone you received in the ER should help reduce your pain and cause sedation allowing you to sleep. In the morning begin taking 600 mg of gabapentin 3 times a day as the new prescription states add the Percocet as directed for continued pain control and please continue with the capsaicin cream. Return to the ER should you have any further concerns Print Language: Tristanian Disposition Disposition: Home, Self Care Discharge Date/Time: 10/03/24 02:49
[2024-10-03] MEDS: oxyCODONE 5 MG Tablet 10 MG PO (02:24)
[2024-10-03 02:26] VITALS: BP 169/99; PULSE 74; RESP 14; TEMP 36.6; O2SAT 98
== END 2024-10-03 02:49 | disposition home or self-care (01) ==
LOC: ED 02:30
PROVIDERS: Emergency Provider Emergency Medicine; PCP Family Medicine; Visit Provider Emergency Medicine
DX: B02.9 Zoster without complications (principal); Z68.41 Body mass index [BMI] 40.0-44.9, adult; G62.89 Other specified polyneuropathies; E66.9 Obesity, unspecified
CPT/HCPCS: 99283